=== PATIENT | female | born 1990 ===

== ENCOUNTER 2017-09-28 18:18 | Emergency (ER) | payer OTHER ==
[2017-09-28 18:30] VITALS: BP 117/78; PULSE 93; RESP 18; TEMP 99.1; O2SAT 96; BMI 37.5
[2017-09-28] MEDS ORDERED: Albuterol-Ipratrop 3 mg / 0.5 (3 ml) UD IH STA (18:46)
--- NOTE | 2017-09-28 18:49 | ED PDOC ---
Arrival/HPI - General Chief Complaint: Fever Time Seen by Provider: 09/28/17 18:22 Historian: Patient - History of Present Illness Narrative History of Present Illness (Text): 09/28/17 18:46 A 27 year old female, whose past medical history includes asthma, presents to the emergency department complaining of fever for 3 days. Patient reports also experiencing sore throat and cough. Patient denies any other complaints at this time. PMD: Dr. Vitaliy Gupta Time/Duration: < week (3 days) Past Medical History - Provider Review Nursing Documentation Reviewed: Yes - Infectious Disease Hx of Infectious Diseases: None - Pulmonary Hx Asthma: Yes - Psychiatric Hx Psychophysiologic Disorder: No Hx Substance Use: No - Surgical History Hx Appendectomy: Yes - Anesthesia Hx Anesthesia: Yes Hx Anesthesia Reactions: No Hx Malignant Hyperthermia: No Family/Social History - Physician Review Nursing Documentation Reviewed: Yes Family/Social History: No Known Family HX Smoking Status: Never Smoked Hx Alcohol Use: No Hx Substance Use: No Allergies/Home Meds Allergies/Adverse Reactions: Allergies No Known Allergies Allergy (Verified 11/03/15 22:33) Home Medications: Home Meds Medication Instructions Recorded Confirmed Albuterol Sulfate [Proair Hfa] 1 puff IH QID PRN 09/28/17 09/28/17 Fluticasone/Vilanterol [Breo 1 puff IH DAILY 09/28/17 09/28/17 Ellipta 100-25 Mcg INH] Review of Systems - Physician Review All systems were reviewed & negative as marked: Yes - Review of Systems Constitutional: Fevers ENT: Sore Throat Respiratory: Cough Physical Exam Vital Signs Reviewed: Yes Vital Signs Temp Pulse Resp BP Pulse Ox 09/28/17 18:23 99.1 F 93 H 18 117/78 96 Temperature: Afebrile Blood Pressure: Normal Pulse: Regular Respiratory Rate: Normal Appearance: Positive for: Well-Appearing Pain Distress: None Mental Status: Positive for: Alert and Oriented X 3 - Systems Exam Respiratory/Chest: Present: Wheezes (minimally scattered wheezing), Other ( diminshed breath sounds) Cardiovascular: Present: Regular Rate and Rhythm, Normal S1, S2. No: Murmurs Neurological: Present: GCS=15, CN II-XII Intact, Speech Normal Skin: Present: Warm, Dry, Normal Color. No: Rashes Psychiatric: Present: Alert, Oriented x 3, Normal Insight, Normal Concentration Medical Decision Making ED Course and Treatment: 09/28/17 18:49 Impression: 27 year old female with sore throat, fever, and cough. Physical exam shows diminished breath sounds and minimally scattered wheezing. Plan: -- EKG -- Chest X-ray -- Influenza A B Stat -- Rapid Strep Test -- Tylenol -- Duoneb -- predniSONE -- Reassess and disposition Progress Notes: - Lab Interpretations Microbiology Results: Microbiology Results 09/28/17 18:55 Throat Group A Strep Throat Culture - Final NO BETA STREP GROUP A ISOLATED. Lab Results: Lab Results 09/28/17 18:55: Influenza Typ A,B (EIA) Negative for flu a/b, Grp A Beta Strep Ag Negative - RAD Interpretation Radiology Orders: 09/28/17 18:46 CHEST TWO VIEWS (PA/LAT) [RAD] Stat - Medication Orders Current Medication Orders: Discontinued Medications Acetaminophen (Tylenol 325mg Tab) 975 mg PO STAT STA Stop: 09/28/17 18:47 Last Admin: 09/28/17 19:03 Dose: 975 mg MAR Pain/Vitals Document 09/28/17 19:03 [email or web address] (Rec: 09/28/17 19:03 [email or web address] [id number] [employer]) Pain Reassessment Is This A Pain ReAssessment? No Sleep Is patient sleeping during reassessment? No Presence of Pain Presence of Pain Yes Pain Scale Used Pain Scale Used Numeric Location Pain Location Body Site Chest Description Constant Intensity 5 Scale Used Numeric Pain Behavior Facial Grimacing Aggravating Factors Changing Position Alleviating Factors Medication Albuterol/Ipratropium (Duoneb 3 Mg/0.5 Mg (3 Ml) Ud) 3 ml IH STAT STA Stop: 09/28/17 18:47 Last Admin: 09/28/17 19:03 Dose: 3 ml Prednisone (Prednisone Tab) 50 mg PO STAT STA Stop: 09/28/17 18:47 Last Admin: 09/28/17 19:03 Dose: 50 mg - Scribe Statement The provider has reviewed the documentation as recorded by the Sonal Jiménez Provider Scribe Attestation: All medical record entries made by the Scribe were at my direction and personally dictated by me. I have reviewed the chart and agree that the record accurately reflects my personal performance of the history, physical exam, medical decision making, and the department course for this patient. I have also personally directed, reviewed, and agree with the discharge instructions and disposition. Disposition/Present on Arrival - Present on Arrival Any Indicators Present on Arrival: No History of DVT/PE: No History of Uncontrolled Diabetes: No Urinary Catheter: No History of Decub. Ulcer: No History Surgical Site Infection Following: None - Disposition Have Diagnosis and Disposition been Completed?: Yes Diagnosis: Asthma Disposition: HOME/ ROUTINE Disposition Time: 01:20 Condition: STABLE Discharge Instructions (ExitCare): Asthma in Adults Additional Instructions: please follow up with your doctor. return to er with worsening symptoms or concerns. Prescriptions: Albuterol 0.083% [Albuterol 0.083% Inhal Carmen (2.5 mg/3 ml) UD] 2.5 mg IH Q6 PRN #20 neb PRN Reason: Wheezing levoFLOXacin [Levaquin] 750 mg PO DAILY #7 tab Nebulizer [Aeroeclipse II] 1 each MC Q4 PRN #1 each PRN Reason: Wheezing Nebulizer Accessories [Adult Aerosol Mask] 1 each MC Q4 PRN #1 each PRN Reason: Wheezing Prednisone 50 mg PO DAILY #5 tablet Referrals: Vitaliy Gupta MD [Primary Care Provider] - Follow up with primary Forms: [employer] ([employer])
[2017-09-28 19:39] LABS: INFLUENZA A B NEGATIVE FOR FLU A/B (NEGATIVE)
--- NOTE | 2017-09-29 09:11 | RAD ---
HISTORY: cough COMPARISON: No prior. TECHNIQUE: Chest PA and lateral FINDINGS: LUNGS: No active pulmonary disease. PLEURA: No significant pleural effusion identified. No pneumothorax apparent. CARDIOVASCULAR: Normal. OSSEOUS STRUCTURES: No significant abnormalities. VISUALIZED UPPER ABDOMEN: Normal. OTHER FINDINGS: None. IMPRESSION: No active disease.
--- NOTE | 2017-09-29 11:11 | CARD ---
APPROVED REPORT EKG Measurement Heart [id number] <Conclusion> Normal sinus rhythm Possible Left atrial enlargement
== END 2017-09-28 22:07 | disposition home or self-care (01) ==
LOC: ED 18:18
DX: J45.909 Unspecified asthma, uncomplicated (principal)